=== PATIENT | male | born 1970 | race Two or more races ===

== ENCOUNTER 2024-10-05 15:46 | Inpatient (IN) | payer BC, MEDICAID ==
[~2024-10-05] VITALS: Ht 175.3 cm; Wt 125.9 kg
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
[2024-10-05] MEDS: ONDANSETRON HCL 4 MG/2 ML VIAL IV ONE (16:56)
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
[2024-10-05] MEDS: MORPHINE SULFATE 4 MG/ML SYR/VIAL IV ONE (16:58)
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
[2024-10-05 17:14] VITALS: PULSE 99; RESP 16; O2SAT 95
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
[2024-10-05 17:25] LABS: Hematocrit 45.2 % (41.0-53.0); Hemoglobin 15.3 g/dL (13.5-17.5); Mean Corpuscular Hemoglobin 31.5 pg (28.0-32.0); Mean Corpuscular Volume 93.0 fL (80.0-100.0); Nucleated Red Blood Cells % 0.0 %
[2024-10-05 17:38] LABS: Chloride 104 mmol/L (98-107); Potassium 3.6 mmol/L (3.5-5.1); Sodium 138 mmol/L (136-145)
[2024-10-05 17:39] LABS: Anion Gap 10 (5-15); Calcium 9.1 mg/dL (8.7-10.4); Carbon Dioxide 24 mmol/L (20-31)
[2024-10-05 17:44] LABS: BUN/Creatinine Ratio 11.2 (10.0-20.0); Blood Urea Nitrogen 11 mg/dL (9-23)
[2024-10-05 17:50] LABS: Glucose 241 mg/dL (74-106)
[2024-10-05] MEDS: HYDROmorphone HCL 2 MG/ML VL/or syr IV ONE ×2 (18:11→21:41)
[2024-10-05 19:30] VITALS: PULSE 92; RESP 11; O2SAT 96
[2024-10-05] MEDS: TETANUS-DIPTH-ACEL PERTUSSIS 0.5ML SYR Tdap IM ONE (20:30)
[2024-10-06] MEDS ORDERED: MORPHINE SULFATE INJ 2 MG/ml SYRG IV PRN (00:30)
[2024-10-06] MEDS ORDERED: HYDROcodone-ACET 5/325MG TAB PO PRN (00:30)
[2024-10-06] MEDS ORDERED: DOCUSATE SOD 100 MG CAP PO PRN (00:30)
[2024-10-06] MEDS ORDERED: ACETAMINOPHEN 325 MG TAB PO PRN (00:30)
[2024-10-06] MEDS ORDERED: TEMAZEPAM 15 MG CAP PO PRN (00:30)
[2024-10-06] MEDS ORDERED: NITROGLYCERIN 0.4 MG SL TAB SL PRN (00:30)
[2024-10-06 01:49] LABS: Urine Protein, UAD 1+ (Negative)
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
[2024-10-06 08:00] VITALS: PULSE 72; RESP 12; O2SAT 96
[2024-10-06] MEDS: ONDANSETRON HCL 4 MG/2 ML VIAL IV PRN (09:15)
[2024-10-06] MEDS: MORPHINE SULFATE INJ 2 MG/ml SYRG IV PRN (09:16)
[2024-10-06] MEDS: ASCORBIC ACID 500 MG TAB PO SCH (10:44)
[2024-10-06] MEDS: ZINC SULFATE 220mg CAP or TAB PO SCH (10:44)
[2024-10-06] MEDS: MULTIPLE VITAMIN TAB PO SCH (10:44)
--- NOTE | 2024-10-06 15:31 | DVH ---
EXAM: CT HEAD WITHOUT CONTRAST INDICATION: r/o bleed. repeat per dr bustos TECHNIQUE: CT of the head without intravenous contrast. Radiation Dose Information: CT Dose: CTDI volume is 53.99 mGy. Dose-length product is 863.9 mGy*cm The dose indicators for CT are the volume Computed Tomography (CT) Dose Index (CTDIvol) and the Dose Length Product (DLP), and are measured in units of mGy and mGy-cm, respectively. These indicators are not patient dose, but values generated from the CT scanner acquisition factors. The report includes radiation exposure data for exposures received during this examination. COMPARISON: CT HEAD WITHOUT CONTRAST on DOS: 10/06/24, CT CERVICAL WITHOUT CONTRAST on DOS: 10/05/24, C T MAXILLOFACIAL WITHOUT on DOS: 10/05/24 FINDINGS: There is no evidence of acute intracranial hemorrhage, extra-axial collection, mass effect, midline s hift, herniation or hydrocephalus. The ventricles, sulci and cisterns are age appropriate. The baldwin-white differentiation is intact. Patchy periventricular and subcortical white matter hypoattenuation is nonspecific but may be related to small vessel ischemic disease. The visualized paranasal sinuses and mastoid air cells are clear. The surrounding soft tissues and osseous structures are unremarkable. IMPRESSION: 1. No acute intracranial abnormality. 2. No intracranial hemorrhage. Current study compared to 10/06/2024 at which time there was no intrac ranial hemorrhage.
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
[2024-10-06 16:35] VITALS: BP 123/77; PULSE 74; RESP 18; TEMP 98.7; O2SAT 96
[2024-10-06 16:38] VITALS: BP 123/77; PULSE 74; RESP 18; TEMP 98.7; O2SAT 96
[2024-10-06 18:09] VITALS: BP 113/75; PULSE 63; RESP 18
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
== END 2024-10-06 20:03 | disposition left against medical advice (07) | DRG 914 ==
LOC: EDBD 15:46 → ER 15:46 → OVERFLOW 10-06 00:19
PROVIDERS: ADMIT Internal Medicine; ATTEND Internal Medicine
DX: S09.90XA Unspecified injury of head, initial encounter (principal); Z68.41 Body mass index [BMI] 40.0-44.9, adult; F07.81 Postconcussional syndrome; E66.9 Obesity, unspecified; E11.9 Type 2 diabetes mellitus without complications; S16.1XXA Strain of muscle, fascia and tendon at neck level, initial encounter; G47.33 Obstructive sleep apnea (adult) (pediatric); F17.200 Nicotine dependence, unspecified, uncomplicated; Z53.29 Procedure and treatment not carried out because of patient's decision for other reasons; Z83.3 Family history of diabetes mellitus; V89.2XXA Person injured in unspecified motor-vehicle accident, traffic, initial encounter; Z82.49 Family history of ischemic heart disease and other diseases of the circulatory system; Y93.89 Activity, other specified; Y92.488 Other paved roadways as the place of occurrence of the external cause; Y99.8 Other external cause status; S00.12XA Contusion of left eyelid and periocular area, initial encounter; S00.11XA Contusion of right eyelid and periocular area, initial encounter
CPT/HCPCS: 36415; 70450; 70486; 72125; 73130; 73562; 80048; 81001; 82962; 85025; 90715; 96374; 96375; G0378; J2405